=== PATIENT | male | born 1980 | race Hispanic/Latino ===

== ENCOUNTER 2020-02-26 20:58 | Emergency (ER) | payer OTHER ==
[2020-02-26] MEDS ORDERED: HYDROCODONE/ACETAMINOPHEN 5/325 MG TAB ONE (21:18)
[2020-02-26] MEDS ORDERED: TETANUS/DIPHTHERIA TOXOID [ADULT] 0.5 ML VIAL IM ONE (21:39)
[2020-02-26] MEDS ORDERED: SILVER NITRATE APPLICATOR 1 SWAB TP ONE (21:52)
[2020-02-26] MEDS ORDERED: TETRACAINE HCL 0.5% 4 ML OPHTH SOLN ONE (21:55)
== END 2020-02-26 22:51 | disposition home or self-care (01) ==
LOC: EDH 20:58
DX: S61.300A Unspecified open wound of right index finger with damage to nail, initial encounter (principal); Z72.0 Tobacco use; W26.8XXA Contact with other sharp object(s), not elsewhere classified, initial encounter; Y93.89 Activity, other specified; Y92.89 Other specified places as the place of occurrence of the external cause; Y99.8 Other external cause status
CPT/HCPCS: 73140; 90471; 90714

== ENCOUNTER 2025-02-09 21:50 | Emergency (ER) | payer OTHER ==
[~2025-02-09] VITALS: Ht 175.3 cm; Wt 103.4 kg
--- NOTE | 2025-02-09 22:05 | NUR ---
WOUND CARE DONE ORDERED
[2025-02-09] MEDS ORDERED: LIDOCAINE HCL/EPINEPHRINE 30 ML VIAL IJ ONE (22:15)
[2025-02-09] MEDS ORDERED: LIDOCAINE 1%-EPI 1:100,000 20 ML VIAL IJ ONE (22:30)
[2025-02-09] MEDS ORDERED: CEPH500B PO (23:53)
[2025-02-09] MEDS ORDERED: OXYC5CAP22 PO (23:53)
--- NOTE | 2025-02-09 23:57 | ERN ---
General Chief Complaint: Laceration/Avulsion Stated Complaint: C/O LACERATION TO LEFT MIDDLE FINGER Time Seen by MD: 22:00 Source: patient History of Present Illness Initial Comments Patient was walking when he stumbled and put his left hand out to catch himself in it was cut on a piece of metal fencing. Hurting a large gash on the ulnar surface of his middle finger going from proximal to distal phalanx. Patient is left hand dominant. His last tetanus shot was five years ago. Allergies: Coded Allergies: No Known Drug Allergies (Unverified Allergy, Unknown, 02/27/20) Past Medical History Past Medical History: No Pertinent History Past Surgical History: None ROS [employer] is negative beyond the laceration to his left middle finger. Physical Exam Extremities Comment Left thumb has an avulsion flap left middle finger on the ulnar surface that extends from the proximal to the distal phalanx it is 10 cm long. It is an avulsion flap with a long flap of skin extending the entire length of the incision with the exposed vessels and subcutaneous fat underneath. Patient is an tendons are not exposed the joints are not violated he has full mobility of his DIP and PIP and MCP joints MDM See procedure note patient's left index finger was numbed with lidocaine the laceration was suture closed with 4-0 nylon sutures Patient given a tetanus shot as it has been five years since his last tetanus inoculation. And 1 g of Ancef. ED Course Orders Procedure Category Date Status Time Laceration Tray Set CPOE 02/09/25 Transmitted Up (Er) 22:02 Lidocaine 1%-Epi PHA 02/09/25 Complete 1:100,000 (Lidocaine 22:30 Cefazolin Sodium 1 Gm PHA 02/09/25 Complete Vial (Ancef 1 Gm V 22:02 Morphine 2mg Syg PHA 02/09/25 Complete (Morphine 2mg Syg) 22:30 Lidocaine PHA 02/09/25 Complete Hcl/Epinephrine 22:15 Morphine 2mg Syg PHA 02/09/25 Complete (Morphine 2mg Syg) 22:17 Current Medications Medications (Trade) Dose Ordered Sig/Monika Route PRN Reason Start Time Stop Time Status Last Admin Dose Admin Cefazolin Sodium (ANCEF 1 gm vial) 1 gm ONCE STAT IVP 02/09/25 22:02 02/09/25 22:21 DC 02/09/25 23:13 Lidocaine/ Epinephrine (Lidocaine 1%-Epi 1:100,000) 20 ml ONCE ONCE IJ 02/09/25 22:30 02/09/25 22:31 DC Lidocaine/ Epinephrine (Lidocaine 1%-Epi 1:100,000) 30 ml STK-MED ONCE IJ 02/09/25 22:15 02/09/25 22:15 DC Morphine Sulfate (morPHINE 2MG SYG) 2 mg ONCE ONCE IVP 02/09/25 22:30 02/09/25 22:31 DC 02/09/25 22:23 Morphine Sulfate (morPHINE 2MG SYG) 2 mg STK-MED ONCE .ROUTE 02/09/25 22:17 02/09/25 22:17 DC Vital Signs Date Time Temp Pulse Resp B/P (MAP) Pulse Ox O2 Delivery O2 Flow Rate FiO2 02/09/25 21:52 97.9 97 20 122/75 98 Room Air Laceration/Wound Repair Laceration/Wound Repair : Wound Location: upper extremity Wound Length (cm): 10 Wound's Depth, Shape: flap Wound Explored: no foreign body removed Betadine Prep?: Yes Anesthesia: Lidocaine w/ Epi Wound Debrided: minimal Wound Repaired With: sutures Suture Size/Type: 4:0 Number of Sutures: 18 Layer Closure?: No Sterile Dressing Applied?: Yes DX & DISP Disposition: Discharge Departure Impression: Primary Impression: Laceration of left middle finger Condition: Stable Scripts Oxycodone HCl (Oxycodone HCl) 5 Mg Capsule 1 CAP PO QIDP PRN for pain for 3 Days, #12 CAP 0 Refills Prov: BABAK SHOOK MD 02/09/25 Cephalexin Monohydrate (Keflex) 500 Mg Cap 500 MG PO QID for 7 Days, #28 CAP Prov: BABAK SHOOK MD 02/09/25 Additional Instructions: Keep hand elevated. Do not get the bandage wet for 48 hours. No soaking the incision in water. No soaking baths no saunas no Jacuzzi he has no swimming no doing the dishes. Showers okay. Replace the bandage anytime it gets wet with fresh bacitracin Xeroform and gauze. Signs and symptoms of infection we will include increased pain increased swell ing increased redness discharge from the wound fever and chills. If see red streaks going up the arm please come to the emergency room immediately for more antibiotic therapy. You can go to your primary care physician and have the sutures removed in two weeks. Referrals: SELF,REFERRAL (PCP) BABAK SHOOK MD Feb 09, 2025 23:57
[2025-02-10 00:52] VITALS: BP 142/66; PULSE 78; RESP 18; TEMP 98.8; O2SAT 89
== END 2025-02-10 00:50 | disposition home or self-care (01) ==
LOC: EDH 21:50
DX: S61.213A Laceration without foreign body of left middle finger without damage to nail, initial encounter (principal); W26.8XXA Contact with other sharp object(s), not elsewhere classified, initial encounter; Y93.01 Activity, walking, marching and hiking; Y92.89 Other specified places as the place of occurrence of the external cause; Y99.8 Other external cause status
CPT/HCPCS: 99284; 96374; 96375; 12004; 90714; 90471; J0690; J2270; 12002